=== PATIENT | male | born 1985 | race Caucasian/White ===

== ENCOUNTER 2019-12-29 20:13 | Emergency (ER) | payer MEDICARE ==
[~2019-12-29] VITALS: Ht 172.7 cm; Wt 84.1 kg
[2019-12-29 20:32] VITALS: Ht 172.7 cm; Wt 84.1 kg
[2019-12-29] MEDS ORDERED: PROTONIX40 MG (20:34)
[2019-12-29] MEDS ORDERED: PROZAC20 MG PO (20:34)
[2019-12-29] MEDS ORDERED: RISPERDAL1 MG PO (20:34)
[2019-12-29 21:53] VITALS: BP 134/78
== END 2019-12-29 21:50 ==
LOC: D.ER 20:13
DX: S01.81XA Laceration without foreign body of other part of head, initial encounter (principal); W19.XXXA Unspecified fall, initial encounter; Y93.9 Activity, unspecified; Y92.9 Unspecified place or not applicable; S60.211A Contusion of right wrist, initial encounter; S60.222A Contusion of left hand, initial encounter